=== PATIENT | male | born 1965 | race Caucasian/White ===

== ENCOUNTER 2022-07-26 08:28 | Day surgery (SDC) | payer BC ==
[2022-07-26] MEDS ORDERED: cloNIDine 0.1 MG TAB ONE (09:21)
[2022-07-26] MEDS ORDERED: cloNIDine 0.1 MG TAB PO SCH (09:45)
[2022-07-26] MEDS ORDERED: Furosemide 20 MG/2 ML VIAL SLOW IVP SCH (15:30)
[2022-07-26 16:27] VITALS: BP 196/90; TEMP 98.3
== END 2022-07-26 16:31 | disposition home or self-care (01) ==
LOC: ONC/OP 08:28
PROVIDERS: ATTEND Family Medicine
DX: D64.9 Anemia, unspecified (principal)
CPT/HCPCS: 36430; 86850; 86900; 86901; 96374; J1940; P9016

== ENCOUNTER 2022-08-13 17:08 | Observation (INO) | payer BC ==
[2022-08-13 18:25] LABS: ALT (SGPT) 188 U/L (8-55); AST (SGOT) 150 U/L (5-34); Albumin 2.1 g/dL (3.5-5.0); Alkaline Phosphatase 740 U/L (40-110); Anion Gap 11 mmol/L (10-20); BUN (Urea Nitrogen) 12 mg/dL (8.4-25.7); Bilirubin, Total 3.8 mg/dL (0.2-1.2); Calc. Creatinine Clearance 0 mL/min (70-130); Carbon Dioxide 27 mmol/L (22-29); Chloride 102 mmol/L (98-107); Estimated GFR 101; Globulin 4.5 g/dL (2.4-3.5); Glucose 306 mg/dL (70-105); Lipase 30 U/L (8-78); PTT 26.2 sec (22.9-36.1); Potassium 3.6 mmol/L (3.5-5.1); Protein, Total 6.6 g/dL (6.0-8.3); Prothrombin Time 13.4 sec (12.0-14.7); Sodium 136 mmol/L (136-145)
[2022-08-13 18:33] LABS: #Basophils 0.1 thou/uL (0.0-0.2); #Eosinphils 0.2 thou/uL (0.0-0.7); #Monocytes 0.8 thou/uL (0.11-0.59); #Neutrophils 5.4 thou/uL (1.40-6.50); %Basophils 1.1 % (0.0-1.0); %Eosinophils 2.9 % (0.0-10.0); %Lymphocytes 12.8 % (21.0-51.0); %Monocytes 10.1 % (0.0-10.0); %Neutrophils 73.1 % (42.0-75.0); Anisocytosis MODERATE=16-30 cells (100X) (0-5/hpf); Hemoglobin 10.6 g/dL (14.0-18.0); Hypochromia SLIGHT = 6-15 cells (100X) (0-5/hpf); Large Platelets SLIGHT; MDiff Complete? YES; Mean Corpuscular HGB CONC 30.5 g/dL (32.0-36.0); Mean Corpuscular Volume 85.1 fl (78.0-98.0); Mean Platelet Volume 11.4 fL (7.4-10.4); Platelet Count 271 10x3/uL (130-400); Platelet Morphology Comment Appears Adequate; Polychromasia SLIGHT = 2-3 cells (100X) (0-2/hpf); RBC Distribution Width 24.2 % (11.5-14.5); Red Blood Cell (RBC) Count 4.08 mill/uL (4.70-6.10); Target Cells SLIGHT = 2-5 cells (100X) (0-1/hpf); White Blood Cell (WBC) Count 7.4 10x3/uL (4.8-10.8)
[2022-08-13] MEDS ORDERED: Ondansetron ODT 4 MG TAB PO PRN (20:59)
[2022-08-13] MEDS ORDERED: Acetaminophen 325 MG TAB PO PRN (20:59)
[2022-08-13] MEDS ORDERED: Ondansetron PF 4 MG/2 ML Vial IVP PRN (20:59)
[2022-08-13] MEDS ORDERED: Acetaminophen 650 MG Suppository PR PRN (20:59)
[2022-08-13] MEDS ORDERED: Dextrose 5% in Water 1,000 ML IV PRN (21:15)
[2022-08-13] MEDS ORDERED: HumaLOG 300 UNITS/3 ML VIAL SC PRN (21:15)
[2022-08-13] MEDS ORDERED: Dextrose 50% Abboject 50 ML SYRINGE SLOW IVP PRN (21:15)
[2022-08-13 21:27] LABS: SARS-CoV-2 NAA Rapid Test Not Detected (NotDetected)
[2022-08-13 21:49] LABS: Anion Gap 10 mmol/L (10-20); BUN (Urea Nitrogen) 12 mg/dL (8.4-25.7); Calc. Creatinine Clearance 0 mL/min (70-130); Calcium 7.6 mg/dL (7.8-10.44); Carbon Dioxide 27 mmol/L (22-29); Chloride 102 mmol/L (98-107); Estimated GFR 103; Glucose 269 mg/dL (70-105); Potassium 3.6 mmol/L (3.5-5.1); Sodium 135 mmol/L (136-145)
[2022-08-13 22:59] VITALS: BMI 26.2
[2022-08-14] MEDS ORDERED: Amlodipine 5 MG TAB PO SCH (01:30)
[2022-08-14 06:23] LABS: #Basophils 0.1 thou/uL (0.0-0.2); #Eosinphils 0.2 thou/uL (0.0-0.7); #Lymphocytes 1.2 thou/uL (1.20-3.40); #Monocytes 0.8 thou/uL (0.11-0.59); #Neutrophils 4.8 thou/uL (1.40-6.50); %Basophils 0.9 % (0.0-1.0); %Eosinophils 3.3 % (0.0-10.0); %Lymphocytes 16.6 % (21.0-51.0); %Monocytes 10.7 % (0.0-10.0); %Neutrophils 68.5 % (42.0-75.0); Hemoglobin 9.3 g/dL (14.0-18.0); Mean Corpuscular HGB CONC 31.2 g/dL (32.0-36.0); Mean Corpuscular Hemoglobin 26.5 pg (27.0-31.0); Mean Corpuscular Volume 84.7 fl (78.0-98.0); Mean Platelet Volume 11.1 fL (7.4-10.4); Platelet Count 220 10x3/uL (130-400); RBC Distribution Width 23.9 % (11.5-14.5)
[2022-08-14] MEDS: HumaLOG 300 UNITS/3 ML VIAL SC PRN ×3 (06:38→16:41)
[2022-08-14] MEDS ORDERED: Lidocaine 2% PF 5 ML VIAL ONE (07:04)
[2022-08-14] MEDS ORDERED: Sodium Bicarbonate 2.5 MEQ/5 ML VIAL ONE (07:04)
[2022-08-14] MEDS ORDERED: Enoxaparin Sodium 40 MG/0.4 ML SYRINGE SC SCH (09:00)
[2022-08-14] MEDS ORDERED: Nadolol 40 MG TAB PO SCH (09:00)
[2022-08-14 14:31] LABS: RBC Count-Automated (BF) 2201 /cu.mm; WBC/Nucleated-Auto (BF) 108 /cu.mm
[2022-08-14 15:08] LABS: BF Color Yellow; Body Fluid Source Ascites Body Fluid; Clarity Clear (Clear); Tube # 1
[2022-08-14 15:21] LABS: BF Segmented Neutrophils 16 %; Cell Count Non Hematic 40 %; Lymphocytes 44 %
[2022-08-14 16:53] VITALS: BP 160/77; TEMP 98.6
[2022-08-15] MEDS ORDERED: Furosemide 20 MG TAB PO SCH (09:00)
[2022-08-15] MEDS ORDERED: Ferrous Sulfate 325 MG TAB PO SCH (09:00)
[2022-08-15] MEDS ORDERED: Spironolactone 25 MG TAB PO SCH (09:00)
== END 2022-08-14 19:20 | disposition home or self-care (01) ==
LOC: ERS 17:08 → ERHOLD 20:10 → T4-A 22:44
PROVIDERS: ADMIT Student in an Organized Health Care Education/Training Program; ATTEND Family Medicine
DX: K70.31 Alcoholic cirrhosis of liver with ascites (principal); E11.9 Type 2 diabetes mellitus without complications; I81 Portal vein thrombosis; D64.9 Anemia, unspecified; I10 Essential (primary) hypertension; Z86.19 Personal history of other infectious and parasitic diseases; Z79.84 Long term (current) use of oral hypoglycemic drugs; Z79.4 Long term (current) use of insulin; Z20.822 Contact with and (suspected) exposure to COVID-19; F17.200 Nicotine dependence, unspecified, uncomplicated
CPT/HCPCS: 36415; 36416; 49083; 71045; 80053; 82042; 83690; 83880; 84157; 84484; 85025; 85060; 85610; 85730; 87070; 87205; 88112; 88305; 89051; 93005; 96372; G0378; J1650; J1815; J2001